=== PATIENT | female | born 1975 | race Caucasian/White ===

== ENCOUNTER 2016-10-27 19:34 | Emergency (ER) | payer OTHER ==
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
--- NOTE | 2016-10-27 23:32 | RADIOLOGY REPORT ---
EXAMINATION: XR WRIST, RIGHT CLINICAL INFORMATION: Right wrist fracture. Status post reduction. COMPARISON: None. TECHNIQUE: AP, lateral, and oblique views of the right wrist. FINDINGS: Interval reduction of the right wrist and placement of a cast overlying the right wrist. Redemonstrated is a comminuted fracture involving the distal right radial metaphysis with decreased angulation of the distal radial fracture fragment relative to the proximal radial fracture fragment. Carpal alignment appears grossly maintained relative to the distal radial fracture fragment. IMPRESSION: Interval reduction of the right wrist and placement of a cast overlying the distal right forearm. Interval reduction in previously identified angulation of the distal radial fracture fragment relative to the proximal radial fracture fragment. Carpal alignment appears grossly maintained relative to the distal radius.
[2016-10-28 00:18] VITALS: BP 131/72
== END 2016-10-28 00:17 ==
LOC: ERH 19:34
DX: S52.501A Unspecified fracture of the lower end of right radius, initial encounter for closed fracture (principal); S92.001A Unspecified fracture of right calcaneus, initial encounter for closed fracture; W10.9XXA Fall (on) (from) unspecified stairs and steps, initial encounter; Y04.8XXA Assault by other bodily force, initial encounter; Y92.9 Unspecified place or not applicable; Y93.9 Activity, unspecified
CPT/HCPCS: 73110-RT; 73610-RT; 73630-RT; 90471; 90714